=== PATIENT | male | born 1985 | race Hispanic/Latino ===

== ENCOUNTER → 2024-07-26 15:40 | Outpatient (CLI) | payer OTHER, SELFPAY ==
--- NOTE | 2024-07-26 15:42 | DI.MRI.S_ITS ---
PROCEDURE: MR HIP LT WO CON INDICATIONS: PAIN IN LEFT HIP TECHNIQUE: Noncontrast coronal T1 spin echo and STIR through the bony pelvis. Coronal and axial T2 fast spin echo with fat saturation, sagittal T1 spin echo, and oblique axial T2 fast spin echo with fat saturation through the hip. COMPARISON: [facility], RG, PELVIS COMP MIN 3VW, 03/23/2024, 7:55. FINDINGS: Image quality: Diagnostic Bones and joints: Susceptibility artifacts are noted in bilateral iliac bones extending to bilateral acetabular roof from prior surgery. Evaluation of bilateral femoral heads are limited due to adjacent susceptibility artifacts. Suggestion of mild bilateral hip joint osteoarthritis. No definite marrow edema. No gross avascular necrosis of the femoral heads. The visualized lower lumbar spine appears normally aligned. Tendons and ligaments: Distal left gluteus medius and minimus tendinosis is seen at their insertions on greater trochanter. The nearby proximal iliotibial band also appears intact. The iliopsoas tendon appears intact, without adjacent bursal fluid collections or evidence for impingement syndrome. The origin of the hamstring tendon is intact at the ischial tuberosity. Labrum and cartilage: There is thinning of articulating cartilage over left femoral head. Subtle signal abnormality and fraying involving posterior superior acetabular labrum is seen concerning for posterior superior labral tear although evaluation is slightly limited due to presence of adjacent susceptibility artifacts. Soft tissues: Visualized muscles demonstrate normal bulk and internal signal. Quadratus femoris muscle demonstrates no internal edema to suggest ischiofemoral impingement. The proximal sciatic neurovascular bundle appears normal adjacent to the hamstring tendons. No free pelvic fluid. Bladder wall thickness is normal. Genitourinary structures and bowel loops appear normal where visualized. IMPRESSION: 1. Postsurgical changes in lateral aspect of bilateral iliac bones extending to bilateral acetabular roofs with significant susceptibility artifacts. No obvious marrow edema. No gross acute fracture or dislocation. No evidence of avascular necrosis of femoral head. Suggestion of mild bilateral hip joint osteoarthritis. 2. Distal left gluteus medius and minimus tendinosis. No other muscle or tendon signal abnormalities. 3. Finding is concerning for posterior superior left acetabular labral tear although evaluation is slightly limited due to adjacent susceptibility artifacts. Dictated by: Chau Lu M.D. on 07/29/2024 at 1:33 Approved by: Chau Lu M.D. on 07/29/2024 at 1:37
== END ==
PROVIDERS: Referring Provider Orthopaedic Surgery; Visit Provider Orthopaedic Surgery
DX: M25.552 Pain in left hip (principal)
CPT/HCPCS: 73721

== ENCOUNTER 2025-01-17 18:19 | Emergency (ER) | payer OTHER, SELFPAY ==
[2025-01-17 18:29] VITALS: BP 130/66; PULSE 65; RESP 12; TEMP 36.6; O2SAT 99; BMI 26.4
--- NOTE | 2025-01-17 19:29 | ED_ITS ---
HPI - Back Pain/Injury General Chief Complaint: Back Pain/Injury Stated Complaint: Lower back pain, hard to walk Time Seen by Provider: 01/17/25 18:24 Source: patient History of Present Illness HPI Narrative: Patient is a healthy 40-year-old male presenting today with back pain. He reports that 2 days ago he was doing some heavy lifting transitioning his routine. Today he was getting up off the couch when he had sudden onset low back pain. No popping. No numbness tingling or radiation to his lower legs. No change in bowel or bladder habits. But he has pain all across his lower lumbar area. He did not take anything for pain prior to arrival. Related Data Previous Rx's ?Medication ?Instructions ?Recorded hydrocodone 5 mg-acetaminophen 325 1 tab PO Q6H PRN pa in #10 tabs 01/17/25 mg tablet methocarbamol 750 mg tablet 750 mg PO Q8H PRN muscle s pasm #14 01/17/25 tabs Allergies Allergy/AdvReac Type Severity Reaction Status Date / Time No Known Drug Allergies Allergy Verified 01/17/25 18:29 Patient History tobacco type: vaping Exam Initial Vital Signs Initial Vital Signs: Vital Signs Temperature 97.9 F 01/17/25 18:29 Pulse Rate 65 01/17/25 18:29 Respiratory Rate 12 01/17/25 18:29 Blood Pressure 130/66 01/17/25 18:29 Pulse Oximetry 99 01/17/25 18:29 Oxygen Delivery Method Room Air 01/17/25 18:29 GENERAL: Well-appearing, well-nourished and in no acute distress. CARDIOVASCULAR: peripheral pulses in tact, cap refill <2 sec RESPIRATORY: No respiratory distress, speaks in full sentences without difficulty BACK: No vertebral tenderness no step-off all across lower lumbar pain does not go into buttock EXTREMITIES: Normal range of motion, no clubbing or edema. Neurovascularly intact NEUROLOGICAL: Cranial nerves II through XII grossly intact. Normal gait and speech. Sensation in lower extremities intact able to lift both legs SKIN: Warm, dry, no petechiae, no rashes or lesions. Course Orders Ordered: Discontinued Medications Hydrocodone Bitart/Acetaminophen (Hydrocodone/Acet 5/325 Prepack) 1 bottle MISC DIRECTED ONE Stop: 01/17/25 19:36 Last Admin: 01/17/25 19:45 Dose: 1 bottle Documented By: JAGJIT Ketorolac Tromethamine (Ketorolac 30 Mg/Ml Vial) 30 mg IM NOW ONE Stop: 01/17/25 19:36 Last Admin: 01/17/25 19:44 Dose: 30 mg Documented By: JAGJIT Methocarbamol (Methocarbamol 500 Mg Tablet) 750 mg PO NOW ONE Stop: 01/17/25 19:36 Last Admin: 01/17/25 19:44 Dose: 750 mg Documented By: JAGJIT Vital Signs Vital signs: Vital Signs - 8 hr 01/17/25 18:29 01/17/25 19:55 Temperature 97.9 F 98.9 F Pulse Rate 65 68 Respiratory Rate 12 16 Blood Pressure 130/66 128/87 Pulse Oximetry 99 100 Oxygen Delivery Method Room Air Room Air MDM - Back Pain/Injury MDM Narrative Medical decision making narrative: Patient is a healthy 40-year-old male presenting today with sudden onset back pain. Changes in 2 days ago he was sore prior now getting up off the couch 10 his back in his spasm. He has no red flag symptoms of cauda equina or epidural abscess. Given Toradol methocarbamol and [place] here in the ED Discharge Plan Departure Patient Disposition: Home Clinical Impression: Strain of lumbar region Instructions: DI for Back Spasm Activity Restrictions/Additional Instructions: *You have been diagnosed with back spasm *What to do: Increase activity as tolerated light activity is encouraged stretching heating. No strenuous activity or heavy lifting *Continue to take medications as directed Motrin 600 mg every 6 hours for [id number] pain Methocarbamol 750 every 8 hours if needed for muscle spasm [place] 1 tablet every 6 hours or at nighttime for severe pain *Follow up with your primary care provider in 2-3 days or call [phone] *Return to ER if you should have increasing pain numbness tingling weakness in legs or any new, worsening or concerning symptoms CONTROLLED SUBSTANCE DISCHARGE (Narcotoic/benzodiazepine/Flexeril/Phenergan) 1. You have been prescribed narcotic medications, it does have acetaminophen/Tylenol/paracetamol in it, DO NOT TAKE MORE THAN 4,00mg in 24 hours of Tylenol. TRAMADOL DOES NOT CONTAIN TYLENOL 2. Please understand that we cannot provide further refills of narcotics, benzodiazepines or controlled substances through the ED and her pain management will need to be through your provider. 3. While on these medications you cannot drive or operate heavy machinery. 4. You cannot sign legal documents or perform any duties such as this. 5. As long as you're taking opiate pain medications he should also be taking a stool softener such as Colace, Dulcolax, MiraLAX or prune juice, to help avoid constipation. Prescriptions: New hydrocodone-acetaminophen 5-325 mg tablet 1 tab PO Q6H PRN (Reason: pain) Qty: 10 0RF methocarbamol 750 mg tablet 750 mg PO Q8H PRN (Reason: muscle spasm) Qty: 14 0RF Referrals: ProviderNick [Primary Care Provider, Family Practice] Stand Alone Forms: Patient Portal/API
[2025-01-17] MEDS: KETOROLAC 30 MG/ML VIAL IM (19:44)
[2025-01-17 19:55] VITALS: BP 128/87; PULSE 68; RESP 16; TEMP 37.2; O2SAT 100
== END 2025-01-17 20:03 | disposition home or self-care (01) ==
PROVIDERS: Emergency Provider Emergency Medicine
DX: S39.012A Strain of muscle, fascia and tendon of lower back, initial encounter (principal); M62.830 Muscle spasm of back; X50.0XXA Overexertion from strenuous movement or load, initial encounter
CPT/HCPCS: 96372; 99283; J1885